=== PATIENT | male | born 1985 | race Caucasian/White ===

== ENCOUNTER 2016-08-13 15:44 | Emergency (ER) | payer OTHER ==
[2016-08-13 15:50] VITALS: TEMP 98.4; O2SAT 95
--- NOTE | 2016-08-13 16:08 | EDPHY ---
H & P Smoking Status: Never smoked Time Seen by Provider: 08/13/16 15:54 HPI/ROS: CHIEF COMPLAINT: Here for hepatitis-B immunoglobulin HISTORY OF PRESENT ILLNESS: 30-year-old immunocompetent male works for [employer] sustained accidental needle stick from a dry closed bore needle 2 days ago. He has had full series of hepatitis B vaccination but was found to be a non responder in follow-up titer, was told to come to the ER for hepatitis-B immune globulin. The status of the source patient's hepatitis is unknown PHYSICAL EXAM (Prior to examination, patient consented to physical exam, hands were washed and my usual and customary physical exam procedures followed) 1) GENERAL: Well-developed, well-nourished, alert and oriented. Appears to be in no acute distress. 2) HEAD: Normocephalic 3) HEENT: sclera anicteric 4) LUNGS: Breathing comfortably. (Murali Serrano) Constitutional: Initial Vital Signs Temperature (C) 36.9 C 08/13/16 15:47 Heart Rate 83 08/13/16 15:47 Respiratory Rate 16 08/13/16 15:47 Blood Pressure 129/84 H 08/13/16 15:47 O2 Sat (%) 95 08/13/16 15:47 O2 Delivery Mode Room Air Allergies/Adverse Reactions: codeine Allergy (Verified 08/13/16 15:46) Home Medications: Medication Instructions Recorded Omeprazole 08/13/16 ZYRTEC 08/13/16 MDM/Departure - MDM Medications Given: Discontinued Medications Hepatitis B Immune Globulin (Hyperhep B) 5 ml IM .ONCE ONE Stop: 08/13/16 16:10 Last Admin: 08/13/16 16:47 Dose: 5 ml ED Course/Re-evaluation: Case discussed with Dr. Katelyn Trujillo in the ER. Patient received hepatitis-B immunoglobulin. Continue follow up with work comp. (Murali Serrano) This patient was examined and treated by the physician physicians assistant. I have reviewed the chart and agree with the documentation. I am the secondary supervising physician. (Katelyn Trujillo) - Depart Disposition: Home, Routine, Self-Care Clinical Impression: hepatitis b immuneglobulin Condition: Good Instructions: Hepatitis B Immune Globulin (By injection) Referrals: followup, with work comp on Tuesday [Other] - As per Instructions
[2016-08-13] MEDS ORDERED: HEPATITIS B IMMUNE GLOBULIN IM ONE (16:09)
[2016-08-13 16:52] VITALS: BP 141/91; PULSE 84; RESP 20
== END 2016-08-13 16:52 | disposition home or self-care (01) ==
DX: Z20.5 Contact with and (suspected) exposure to viral hepatitis (principal)